=== PATIENT | female | born 1945 | race Caucasian/White ===

== ENCOUNTER 2018-12-03 15:51 | Emergency (ER) | payer MEDICARE, OTHER ==
[~2018-12-03] VITALS: Ht 160 cm; Wt 97.3 kg
[2018-12-03 16:11] VITALS: Ht 160 cm; Wt 97.3 kg
--- NOTE | 2018-12-03 19:12 | ERD ---
ER Documentation Chief Complaint Chief Complaint LEFT LEG PAIN X1WK, SENT BY PMD R/O DVT DR JURADO HPI The patient is a 73-year-old female, presenting to the ER because of left leg swollen and painful for the last 2 weeks, denies similar symptoms previously, denies fever, chills, neck pain, chest pain, dyspnea, abdominal pain, vomiting, dysuria, diarrhea. She was seen by her physician Dr. Jurado who sent her to the ER for further evaluation. She does not smoke nor drink Past medical history: Hypertension, dyslipidemia, CAD Past surgical history: Pacemaker ROS All systems reviewed and are negative except as per history of present illness. Medications Home Meds Active Scripts Ibuprofen* (Motrin*) 600 Mg Tab, 600 MG PO Q6H PRN for PAIN AND OR ELEVATED TEMP, #20 TAB Prov:EFE ARAMBULA MD 12/03/18 Physical Exam Vitals Vital Signs Date Temp Pulse Resp B/P (MAP) Pulse Ox O2 O2 Flow FiO2 Time Delivery Rate 12/03/18 98.2 69 18 140/80 100 16:11 (100) Physical Exam Const: No acute distress. Head: Atraumatic. Eyes: Normal Conjunctiva. ENT: Normal External Ears, Nose and Mouth. Neck: Full range of motion. No meningismus. Resp: Clear to auscultation bilaterally. Cardio: Regular rate and rhythm. Abd: Soft, non distended, normal bowel sounds, non tender. Skin: No petechiae or rashes. Back: No midline or flank tenderness. Ext: Mild left calf tenderness Neur: Awake and alert. No focal deficit Psych: Normal Mood and Affect. Results 24 hrs Current Medications Medications Dose Sig/Yary Start Time Status Last (Trade) Ordered Route PRN Stop Time Admin Dose Reason Admin 1 tab ONCE ONCE 12/03/18 DC 12/03/18 Acetaminophen PO 19:30 19:30 / 12/03/18 19:31 Hydrocodone Bitart ([place] (5/325)) Ondansetron 4 mg ONCE STAT 12/03/18 DC 12/03/18 HCl (Zofran ODT 19:16 19:28 Odt) 12/03/18 19:19 Procedures/[address] [address] Radiology Main Line: [phone] DIAGNOSTIC IMAGING REPORT Patient: APARICIODEMORN,KIMBERLEE : 1945 Age: 73 Sex: F MR #: [id number] DOS: 12/03/181915 Ordering MD: EFE ARAMBULA MD Location: E/R Room/Bed: PROCEDURE: US DVT. CLINICAL INDICATION: Left lower extremity pain and swelling. TECHNIQUE: Multiple longitudinal and transverse images of the left lower extremity veins were obtained with urbina scale and color Doppler imaging. 2D grayscale measurements with compression, color Doppler flow, and augmentation wa s performed. The calf veins were interrogated as well. COMPARISON: No prior studies are available for comparison. FINDINGS: The left common femoral, superficial femoral and popliteal veins are normally compressible throughout. Color flow demonstrates normal filling of the vessel. Normal waveforms are visualized and there is normal response to augmentation. The calf veins are visualized and are equally unremarkable. IMPRESSION: 1. No evidence of a deep vein thrombosis involving the left lower extremity. RPTAT: HFN .Oanh Scott MD, MD Date Time Electronically viewed and signed by .Oanh Scott MD, MD on 12/03/2018 20:18 .N/ CC: EFE ARAMBULA MD [id number] MEDICAL MAKING DECISION: The patient is a 73-year-old female, presenting with acute left leg pain of unclear etiology, was treated with [place] 5 mg p.o. for pain and Zofran ODT for nausea with good response, is stable for outpatient follow-up The differential diagnoses considered include but are not limited to fatigue, cellulitis, muscle spasm, cellulitis Departure Diagnosis: Primary Impression: Leg pain, left EFE ARAMBULA MD Dec 03, 2018 19:12
[2018-12-03] MEDS ORDERED: ONDANSETRON (ODT) 4 MG TAB ODT STA (19:16)
[2018-12-03] MEDS ORDERED: HYDROCODONE/APAP (5/325) TAB PO ONE (19:30)
[2018-12-03] MEDS ORDERED: IBUP-1542 PO (20:49)
[2018-12-03 22:20] VITALS: BP 134/68; PULSE 82; RESP 16
== END 2018-12-03 22:21 | disposition home or self-care (01) ==
LOC: E/R 15:51
DX: M79.605 Pain in left leg (principal); I10 Essential (primary) hypertension; I25.10 Atherosclerotic heart disease of native coronary artery without angina pectoris; Z95.0 Presence of cardiac pacemaker
CPT/HCPCS: 93971